=== PATIENT | female | born 1960 | race Caucasian/White ===

== ENCOUNTER 2024-11-02 16:06 | Inpatient (IN) | payer BC, SELFPAY ==
[2024-11-02] MEDS ORDERED: Morphine 2 MG/ML VIAL SLOW IVP PRN (16:16)
[2024-11-02] MEDS ORDERED: Ipratropium/Albuterol 3 ML NEB NEB PRN (16:16)
[2024-11-02] MEDS ORDERED: traMADol HCl 50 MG TAB PO PRN (16:18)
[2024-11-02] MEDS ORDERED: Sodium Chloride 0.9% 100 ML ONE (16:28)
[2024-11-02] MEDS ORDERED: Ketorolac Tromethamine 30 MG (1 mL) VIAL ONE (16:28)
[2024-11-02] MEDS ORDERED: cefOXitin 2 GM VIAL ONE (16:28)
[2024-11-02] MEDS ORDERED: fentaNYL PF 100 MCG/2 ML SYRINGE ONE (16:57)
[2024-11-02] MEDS ORDERED: PROPOFOL 20 ML ONE (16:58)
[2024-11-02] MEDS ORDERED: EPINEPHrine 1 MG/ML VIAL ONE (17:22)
[2024-11-02] MEDS ORDERED: Bupivacaine 0.25% HCL 30 ML VIAL ONE (17:23)
[2024-11-02] MEDS ORDERED: SUCCINYLCHOLINE/SOD CL,ISO/PF 200 MG/10 ML SYRINGE FS ONE (17:33)
[2024-11-02] MEDS ORDERED: Ondansetron PF 4 MG/2 ML Vial ONE (17:33)
[2024-11-02] MEDS ORDERED: Lidocaine 1% PF 5 ML VIAL ONE (17:33)
[2024-11-02] MEDS ORDERED: Dexamethasone 20 MG/5 ML VIAL ONE (17:33)
[2024-11-02] MEDS ORDERED: Rocuronium Bromide 10 MG/ML (10ML VIAL) ONE (17:33)
[2024-11-02] MEDS ORDERED: HYDROmorphone 2 MG/ML VIAL ONE (17:43)
[2024-11-02] MEDS ORDERED: ePHEDrine Sulfate 50 MG/10 ML VIAL ONE (17:59)
[2024-11-02] MEDS ORDERED: traMADol HCl 50 MG TAB PO SCH (18:00)
[2024-11-02] MEDS ORDERED: Acetaminophen 500 MG TAB PO SCH (18:00)
[2024-11-02] MEDS ORDERED: SUGAMMADEX SODIUM 200 MG/2 ML VIAL ONE (18:16)
[2024-11-02] MEDS ORDERED: diphenhydrAMINE 50 MG/ML VIAL IVP PRN (18:36)
[2024-11-02] MEDS ORDERED: diphenhydrAMINE 50 MG/ML VIAL IM PRN (18:36)
[2024-11-02] MEDS ORDERED: Ondansetron HCl/PF 4 MG/2 ML Vial IVP PRN (18:36)
[2024-11-02] MEDS ORDERED: diphenhydrAMINE 25 MG CAP PO PRN (18:36)
[2024-11-02] MEDS ORDERED: Promethazine HCl 25 MG/ML VIAL IM PRN (18:36)
[2024-11-02] MEDS ORDERED: HYDROmorphone 2 MG/ML VIAL SLOW IVP PRN (18:36)
[2024-11-02] MEDS ORDERED: Naloxone HCl 0.4 mg/ml Vial IV PRN (18:36)
[2024-11-02] MEDS ORDERED: Glucagon 1 MG/ML KIT IM PRN (18:42)
[2024-11-02] MEDS ORDERED: Dextrose 5% in Water 1,000 ML IV PRN (18:42)
[2024-11-02] MEDS ORDERED: Insulin Lispro 100 UNIT/ML 10 ML VIAL SC PRN (18:42)
[2024-11-02] MEDS ORDERED: Dextrose 50% Abboject 50 ML SYRINGE SLOW IVP PRN (18:42)
[2024-11-02] MEDS ORDERED: Communication Order-Pharmacy FS SCH (18:45)
[2024-11-02] MEDS ORDERED: hydrALAZINE 20 MG/ML VIAL SLOW IVP PRN (18:45)
[2024-11-02] MEDS: Lactated Ringer's 1,000 ML IV SCH (19:05)
[2024-11-02] MEDS ORDERED: Enoxaparin 40 MG (0.4 mL) SYRINGE ONE (20:04)
[2024-11-02] MEDS ORDERED: Famotidine/PF 20 mg/2ml Vial SLOW IVP SCH (21:00)
[2024-11-02] MEDS: Enoxaparin 40 MG (0.4 mL) SYRINGE SC SCH (21:16)
[2024-11-02] MEDS: Pantoprazole 40 MG VIAL IVP SCH (21:25)
[2024-11-02 22:24] VITALS: BMI 36.6
[2024-11-02] MEDS: Ketorolac Tromethamine 30 MG (1 mL) VIAL IVP SCH (23:17)
[2024-11-03 05:30] LABS: #Basophils Less than 0.03 10x3/uL (0.0-0.2); #Eosinophils Less than 0.03 10x3/uL (0.0-0.7); %Basophils 0.1 % (0.0-1.0); %Lymphocytes 4.5 % (21.0-51.0); %Monocytes 4.8 % (0.0-10.0); %Neutrophils 90.3 % (42.0-75.0); Hematocrit 37.8 % (36.0-47.0); Mean Corpuscular HGB CONC 31.7 g/dL (32.0-36.0); Mean Corpuscular Hemoglobin 27.1 pg (27.0-31.0); Mean Corpuscular Volume 85.3 fL (78.0-98.0); Platelet Count 233 10x3/uL (130-400); RBC Distribution Width 14.3 % (11.5-14.5); Red Blood Cell (RBC) Count 4.43 mill/uL (4.20-5.40)
[2024-11-03 05:44] LABS: Anion Gap 14 mmol/L (10-20); BUN (Urea Nitrogen) 14 mg/dL (9.8-20.1); Calc. Creatinine Clearance 96 mL/min (70-130); Calcium 8.2 mg/dL (7.8-10.44); Carbon Dioxide 19 mmol/L (23-31); Chloride 105 mmol/L (98-107); Estimated GFR 76; Glucose 168 mg/dL (80-115); Potassium 4.3 mmol/L (3.5-5.1); Sodium 134 mmol/L (136-145)
[2024-11-03 05:47] LABS: Hemoglobin A1c 7.7 % (4.0-6.0)
[2024-11-03] MEDS: Lisinopril 10 MG TAB PO SCH (08:32)
[2024-11-03] MEDS: Pantoprazole 40 MG VIAL IVP SCH (09:11)
[2024-11-03] MEDS: Sodium Chloride 0.9% 1,000 ML IV SCH (09:11)
[2024-11-04 07:48] LABS: #Basophils Less than 0.03 10x3/uL (0.0-0.2); #Eosinophils Less than 0.03 10x3/uL (0.0-0.7); %Basophils 0.2 % (0.0-1.0); %Eosinophils 0.1 % (0.0-10.0); %Lymphocytes 6.5 % (21.0-51.0); %Monocytes 5.1 % (0.0-10.0); %Neutrophils 87.6 % (42.0-75.0); Hematocrit 34.4 % (36.0-47.0); Mean Corpuscular Hemoglobin 27.4 pg (27.0-31.0); Mean Corpuscular Volume 85.6 fL (78.0-98.0); Mean Platelet Volume 10.4 fL (7.4-10.4); Platelet Count 217 10x3/uL (130-400); RBC Distribution Width 14.6 % (11.5-14.5); Red Blood Cell (RBC) Count 4.02 mill/uL (4.20-5.40)
[2024-11-04 08:06] LABS: Anion Gap 13 mmol/L (10-20); BUN (Urea Nitrogen) 14 mg/dL (9.8-20.1); Calc. Creatinine Clearance 110 mL/min (70-130); Calcium 8.2 mg/dL (7.8-10.44); Carbon Dioxide 20 mmol/L (23-31); Chloride 105 mmol/L (98-107); Estimated GFR 90; Glucose 129 mg/dL (80-115); Potassium 3.6 mmol/L (3.5-5.1); Sodium 134 mmol/L (136-145)
[2024-11-04] MEDS: Acetaminophen 500 MG TAB PO SCH (08:26)
[2024-11-04] MEDS ORDERED: traMADol HCl 50 MG TAB PO PRN (12:00)
[2024-11-04] MEDS: Ondansetron PF 4 MG/2 ML Vial IVP PRN ×2 (13:38→19:37)
[2024-11-04] MEDS: Promethazine HCl 25 MG/ML VIAL IM PRN (16:32)
[2024-11-04] MEDS: FENTANYL 500 MCG/10 ML VIAL 2,000 MCG in Sodium Chloride 0.9% 60 ML IV PRN (19:04)
[2024-11-04] MEDS: Metoclopramide HCl 10 MG (2 mL) VIAL IVP SCH (21:16)
[2024-11-05 05:19] LABS: #Basophils Less than 0.03 10x3/uL (0.0-0.2); #Eosinophils Less than 0.03 10x3/uL (0.0-0.7); %Basophils 0.1 % (0.0-1.0); %Eosinophils 0.1 % (0.0-10.0); %Lymphocytes 5.4 % (21.0-51.0); %Neutrophils 88.9 % (42.0-75.0); Hematocrit 34.2 % (36.0-47.0); Mean Corpuscular HGB CONC 32.2 g/dL (32.0-36.0); Mean Corpuscular Hemoglobin 27.8 pg (27.0-31.0); Mean Corpuscular Volume 86.4 fL (78.0-98.0); Mean Platelet Volume 10.9 fL (7.4-10.4); Platelet Count 233 10x3/uL (130-400); RBC Distribution Width 14.7 % (11.5-14.5); Red Blood Cell (RBC) Count 3.96 mill/uL (4.20-5.40)
[2024-11-05 05:39] LABS: Anion Gap 12 mmol/L (10-20); BUN (Urea Nitrogen) 11 mg/dL (9.8-20.1); Calc. Creatinine Clearance 107 mL/min (70-130); Calcium 8.4 mg/dL (7.8-10.44); Carbon Dioxide 19 mmol/L (23-31); Chloride 108 mmol/L (98-107); Estimated GFR 87; Glucose 149 mg/dL (80-115); Potassium 3.9 mmol/L (3.5-5.1); Sodium 135 mmol/L (136-145)
[2024-11-06] MEDS ORDERED: Docusate 100 MG CAP PO PRN (14:57)
[2024-11-06] MEDS ORDERED: HYDROcodone/Acetaminophen 5/325 mg Tablet PO PRN (15:18)
[2024-11-06] MEDS ORDERED: Methocarbamol 500 MG TAB PO PRN (15:18)
[2024-11-06] MEDS: Dextrose 5%-Lactated Ringers 1,000 ML IV SCH (15:21)
[2024-11-06] MEDS: hydrALAZINE 20 MG/ML VIAL SLOW IVP PRN (21:09)
[2024-11-06] MEDS: Famotidine/PF 20 mg/2ml Vial SLOW IVP SCH (22:13)
[2024-11-07] MEDS: Labetalol HCl 100 MG/20 ML VIAL SLOW IVP PRN (00:20)
[2024-11-07] MEDS: Benzocaine 20% Spray 60 ML CAN PO SCH (01:15)
[2024-11-07] MEDS: Lorazepam 2 MG/ML VIAL SLOW IVP SCH ×2 (01:18→02:30)
[2024-11-07] MEDS: Lidocaine 2% 6 ML (Jelly) SYR TOP SCH (01:18)
[2024-11-07] MEDS: Famotidine/PF 20 mg/2ml Vial SLOW IVP SCH (08:17)
[2024-11-07] MEDS: FLU (Fluarix Triv) TS24-25(6MOS UP)/PF 45 MCG/0.5 ML Syringe IM ONE (20:56)
[2024-11-08 08:17] LABS: #Basophils Less than 0.03 10x3/uL (0.0-0.2); %Basophils 0.2 % (0.0-1.0); %Eosinophils 0.8 % (0.0-10.0); %Monocytes 6.7 % (0.0-10.0); %Neutrophils 83.8 % (42.0-75.0); Hematocrit 33.7 % (36.0-47.0); Hemoglobin 10.9 g/dL (12.0-16.0); Mean Corpuscular HGB CONC 32.3 g/dL (32.0-36.0); Mean Corpuscular Hemoglobin 27.2 pg (27.0-31.0); Mean Platelet Volume 9.8 fL (7.4-10.4); Platelet Count 298 10x3/uL (130-400); RBC Distribution Width 14.3 % (11.5-14.5); Red Blood Cell (RBC) Count 4.01 mill/uL (4.20-5.40)
[2024-11-08 08:31] LABS: ALT (SGPT) 31 U/L (8-55); AST (SGOT) 28 U/L (5-34); Albumin 2.2 g/dL (3.4-4.8); Alkaline Phosphatase 118 U/L (40-110); Anion Gap 13 mmol/L (10-20); BUN (Urea Nitrogen) 6 mg/dL (9.8-20.1); Bilirubin, Total 0.5 mg/dL (0.2-1.2); Calc. Creatinine Clearance 118 mL/min (70-130); Carbon Dioxide 22 mmol/L (23-31); Chloride 105 mmol/L (98-107); Estimated GFR 97; Globulin 3.4 g/dL (2.4-3.5); Glucose 134 mg/dL (80-115); Potassium 3.1 mmol/L (3.5-5.1); Protein, Total 5.6 g/dL (5.8-8.1); Sodium 137 mmol/L (136-145)
[2024-11-09] MEDS: Potassium Chloride 10 MEQ in Premix 1 BAG IVPB SCH (00:38)
[2024-11-09 09:03] LABS: Anion Gap 14 mmol/L (10-20); BUN (Urea Nitrogen) 6 mg/dL (9.8-20.1); Calc. Creatinine Clearance 121 mL/min (70-130); Calcium 8.4 mg/dL (7.8-10.44); Carbon Dioxide 20 mmol/L (23-31); Chloride 109 mmol/L (98-107); Estimated GFR 98; Glucose 118 mg/dL (80-115); Potassium 3.1 mmol/L (3.5-5.1); Sodium 140 mmol/L (136-145)
[2024-11-09 09:04] LABS: #Basophils 0.03 10x3/uL (0.0-0.2); %Basophils 0.3 % (0.0-1.0); %Eosinophils 1.5 % (0.0-10.0); %Lymphocytes 13.9 % (21.0-51.0); %Monocytes 6.7 % (0.0-10.0); %Neutrophils 76.9 % (42.0-75.0); Hemoglobin 11.4 g/dL (12.0-16.0); Mean Corpuscular HGB CONC 32.6 g/dL (32.0-36.0); Mean Corpuscular Volume 82.9 fL (78.0-98.0); Platelet Count 207 10x3/uL (130-400); RBC Distribution Width 14.7 % (11.5-14.5); Red Blood Cell (RBC) Count 4.22 mill/uL (4.20-5.40)
[2024-11-09] MEDS ORDERED: Ketorolac Tromethamine 30 MG (1 mL) VIAL IVP PRN (12:37)
[2024-11-09] MEDS ORDERED: traMADol HCl 50 MG TAB PO PRN (12:38)
[2024-11-09] MEDS: metFORMIN 500 MG TAB PO SCH (17:53)
[2024-11-09] MEDS: Potassium Chloride 20 MEQ TAB PO SCH ×2 (18:33→21:18)
[2024-11-10 06:02] LABS: Anion Gap 16 mmol/L (10-20); BUN (Urea Nitrogen) 7 mg/dL (9.8-20.1); Calc. Creatinine Clearance 118 mL/min (70-130); Calcium 8.3 mg/dL (7.8-10.44); Carbon Dioxide 21 mmol/L (23-31); Chloride 109 mmol/L (98-107); Estimated GFR 97; Glucose 80 mg/dL (80-115); Sodium 142 mmol/L (136-145)
[2024-11-10 08:13] VITALS: BP 178/80
[2024-11-10 08:30] VITALS: TEMP 97.3
== END 2024-11-10 11:58 | disposition home or self-care (01) | DRG 330 ==
LOC: SDC 16:06 → EEVIPCON 16:18 → OBSVTOIN 16:18 → SURG A 16:18
PROVIDERS: ADMIT Student in an Organized Health Care Education/Training Program; ATTEND Student in an Organized Health Care Education/Training Program
PROC: 0DB80ZZ Excision of Small Intestine, Open Approach (ICD-10-PCS; principal; 2024-11-02)
PROC: 0WJG4ZZ Inspection of Peritoneal Cavity, Percutaneous Endoscopic Approach (ICD-10-PCS; 2024-11-02)
DX: D3A.0 Benign carcinoid tumors (principal); K56.600 Partial intestinal obstruction, unspecified as to cause; R18.8 Other ascites; K56.7 Ileus, unspecified; D3A.012 Benign carcinoid tumor of the ileum; E11.9 Type 2 diabetes mellitus without complications; I10 Essential (primary) hypertension; R59.1 Generalized enlarged lymph nodes; N83.202 Unspecified ovarian cyst, left side; D72.829 Elevated white blood cell count, unspecified; Z79.82 Long term (current) use of aspirin; Z79.899 Other long term (current) drug therapy; Z98.51 Tubal ligation status; Z91.141 Patient's other noncompliance with medication regimen due to financial hardship
CPT/HCPCS: 36415; 36416; 74018; 80048; 80053; 83036; 85025; 88309; 88341; 88342; 88361; A4314; A4649; C1776; J0171; J0360; J0665; J0694; J1100; J1171; J1650; J1885; J2060; J2405; J2470; J2550; J2704; J2765; J3010; J3480; J3490; J7030; J7120